=== PATIENT | female | born 1970 | race Hispanic/Latino ===

== ENCOUNTER 2017-05-23 07:25 | Day surgery (SDC) | payer OTHER ==
[2016-01-12 10:44] VITALS: BMI 32.0
[2017-05-23] MEDS ORDERED: Morphine 10 mg/5 ml Oral Soln PO PRN (08:37)
[2017-05-23] MEDS ORDERED: Dextrose 5%/0.45% NS 1,000 ML IV SCH (08:45)
[2017-05-23] MEDS ORDERED: Propofol 10 mg/ml Inj (20 ML) ONE (09:52)
[2017-05-23] MEDS ORDERED: ceFAZolin IV 1 gm in Dextrose 1 GM/50 ML BAG IVPB ONE (09:55)
[2017-05-23] MEDS ORDERED: Succinylcholine Chloride 20 mg/ml Syr (5 ml) IV ONE (09:55)
[2017-05-23] MEDS ORDERED: HYDROmorphone 0.5 mg/0.5 ml ISec IVP PRN (10:18)
[2017-05-23 11:37] VITALS: BP 91/62; PULSE 68; RESP 18; TEMP 97.2; O2SAT 100
--- NOTE | 2017-05-23 12:07 | OP ---
PROCEDURE DATE: 05/23/2017 PREOPERATIVE DIAGNOSIS: Right tonsil lesion. POSTOPERATIVE DIAGNOSIS: Right tonsil lesion. PROCEDURE: Removal of right tonsil lesion SIGNIFICANT FINDINGS: Right tonsil lesion. DESCRIPTION OF PROCEDURE: The patient was brought into the room and placed in a supine position. Anesthesia was initiated through an ET tube. The patient was draped in the usual manner. Mouth gag was opened and suspended on the [employer] attendant the usual manner. The lesion on the right tonsil was noted and it was grabbed and pulled medially. Incision was made around the lesion using Bovie. The lesion was removed. Bleeding was controlled using suction cautery. As the mouth gag was taken out and removed, the patient was taken off anesthesia and taken to the recovery room in stable manner. Johnson Pionn MD
== END 2017-05-23 12:08 | disposition home or self-care (01) ==
LOC: C.SDS 07:25
PROVIDERS: ATTEND Otolaryngology
DX: J35.8 Other chronic diseases of tonsils and adenoids (principal)
CPT/HCPCS: 42999; 88304; J0690; J1100; J1170; J2405; J2704; J3010